=== PATIENT | male | born 1985 | race Caucasian/White ===

== ENCOUNTER 2018-05-01 21:11 | Emergency (ER) | payer OTHER ==
[~2018-05-01] VITALS: Ht 185.4 cm; Wt 88.6 kg
[2018-05-01 21:20] VITALS: BP 147/69
== END 2018-05-01 23:02 | disposition left against medical advice (07) ==
LOC: M ED 21:11 → EDBD 21:11 → M ED 23:02
DX: Z53.29 Procedure and treatment not carried out because of patient's decision for other reasons (principal)